=== PATIENT | male | born 1960 | race Caucasian/White ===

== ENCOUNTER 2019-12-07 13:10 | Inpatient (IN) ==
[2019-12-07] MEDS ORDERED: ACETAMINOPHEN 500 MG TABLET PO STA (13:45)
[2019-12-07 14:49] LABS: Basophils % 0.1 % (0.0-0.8); Hematocrit 38.4 VOL% (42.0-52.0); Hemoglobin 13.2 GM/DL (14.0-18.0); Immature Granulocytes % 0.8 %; Immature Granulocytes Absolute 0.12 #; Lymphocytes # 1.6 10*3/uL (1.4-4.0); Lymphocytes % 10.3 % (21.2-54.2); Mean Corpuscular HGB Conc 34.4 GM/DL (32-36); Mean Corpuscular Volume 90.8 FL (87-102); Mean Platelet Volume 10.1 FL (9.6-12.0); Monocytes % 9.2 % (1.7-12.7); Neutrophils % 79.6 % (38.7-73.9); Platelet Count 293 T/CUMM (130-400); Red Blood Count 4.23 MC/CUMM (3.8-5.5); Red Cell Distribution Width 13.2 % (9.3-17.3); White Blood Count 15.8 T/CUMM (4-12)
[2019-12-07 15:26] LABS: Albumin 3.3 G/DL (3.4-5.0); Bilirubin,Total 1.4 MG/DL (0.2-1.0); Osmolality,Calculated 262.2 MOS/KG (273-304); Total Protein 7.9 G/DL (6.4-8.3)
[2019-12-07 15:32] LABS: Apearance,Urine Slightly Hazy (Clear); Bacteria,Urine Many /HPF (Few); Bilirubin,Urine Negative (Negative); Blood, Urine Moderate mg/dL (Negative); Glucose,Urine (UA) Negative (Negative); Hyaline Casts,Urine 8 /LPF (0-3); Ketones,Urine 20 mg/dL (Negative); Mucus,Urine Occasional /LPF (Occasional); Nitrite,Urine Negative (Negative); Protein,Urine 30 MG/DL; RBC,Urine 7 /HPF (0-4); Urine Color Yellow (Yellow); Urine Specific Gravity 1.019 (1.001-1.035); WBC,Urine 79 /HPF (0-6)
[2019-12-07] MEDS ORDERED: POTASSIUM CHLORIDE 20 MEQ TABLET PO STA (15:45)
[2019-12-07] MEDS ORDERED: cefTRIAXone 1,000 MG in SODIUM CHLORIDE 0.9% 100 ML IV STA (15:46)
[2019-12-07] MEDS ORDERED: ONDANSETRON 4 MG/2 ML VIAL IV STA (15:57)
[2019-12-07] MEDS ORDERED: CALCIUM CARBONATE CHEW 500 MG TABLET PO PRN (16:58)
[2019-12-07] MEDS ORDERED: DOCUSATE SODIUM 100 MG CAPSULE PO PRN (16:58)
[2019-12-07] MEDS ORDERED: ZALEPLON 5 MG CAPSULE PO PRN (16:58)
[2019-12-07 17:45] LABS: ABG Base Excess 1.9 MMOL/L (-2.5-2.5); ABG HCO3 26.1 MMOL/L (20-26); ABG Oxygen Saturation 99.6 % (95-100); ABG TCO2 18.4 MMOL/L (23-27)
[2019-12-07 17:50] LABS: ABG PCO2 20.8 MM HG (35-48)
[2019-12-07] MEDS: ONDANSETRON 4 MG/2 ML VIAL IV PRN (20:43)
[2019-12-07] MEDS: POTASSIUM CHLORIDE INJ 30 MEQ in SODIUM CHLORIDE 0.9% 1,000 ML IV SCH (20:43)
[2019-12-07] MEDS: ENOXAPARIN 40 MG/0.4 ML SYRINGE SUBCUT SCH (20:43)
[2019-12-07] MEDS: ACETAMINOPHEN 325 MG TABLET PO PRN (22:17)
[2019-12-08] MEDS: POTASSIUM CHLORIDE INJ 30 MEQ in SODIUM CHLORIDE 0.9% 1,000 ML IV SCH ×3 (05:30→22:36)
[2019-12-08] MEDS: ONDANSETRON 4 MG/2 ML VIAL IV PRN (05:31)
[2019-12-08 07:11] LABS: Calcium 8.5 MG/DL (8.5-10.1); Osmolality,Calculated 266.8 MOS/KG (273-304)
[2019-12-08 18:25] LABS: Calcium 8.3 MG/DL (8.5-10.1); Osmolality,Calculated 265.8 MOS/KG (273-304)
[2019-12-08] MEDS: ACETAMINOPHEN 325 MG TABLET PO PRN (18:51)
[2019-12-08] MEDS: ENOXAPARIN 40 MG/0.4 ML SYRINGE SUBCUT SCH (21:09)
[2019-12-08] MEDS: cefTRIAXone 1,000 MG in SYRINGE 1 EACH IV SCH (21:09)
[2019-12-08] MEDS: POTASSIUM CHLORIDE RIDER 10 MEQ in PREMIX 1 EACH IV PRN ×2 (21:10→22:38)
[2019-12-09] MEDS: POTASSIUM CHLORIDE RIDER 10 MEQ in PREMIX 1 EACH IV PRN ×3 (01:52→10:15)
[2019-12-09 06:05] LABS: Basophils % 0.3 % (0.0-0.8); Eosinophils % 0.1 % (0.00-10.9); Hematocrit 34.1 VOL% (42.0-52.0); Hemoglobin 11.6 GM/DL (14.0-18.0); Immature Granulocytes Absolute 0.11 #; Lymphocytes # 2.3 10*3/uL (1.4-4.0); Lymphocytes % 20.9 % (21.2-54.2); Mean Platelet Volume 10.1 FL (9.6-12.0); Monocytes % 14.7 % (1.7-12.7); Platelet Count 268 T/CUMM (130-400); Red Blood Count 3.79 MC/CUMM (3.8-5.5); Red Cell Distribution Width 13.4 % (9.3-17.3); White Blood Count 11.1 T/CUMM (4-12)
[2019-12-09 06:33] LABS: Osmolality,Calculated 264.7 MOS/KG (273-304)
[2019-12-09] MEDS: AZITHROMYCIN 250 MG TABLET PO SCH (08:20)
[2019-12-09] MEDS: POTASSIUM CHLORIDE INJ 30 MEQ in SODIUM CHLORIDE 0.9% 1,000 ML IV SCH ×2 (10:14→19:20)
[2019-12-09] MEDS: SODIUM CHLORIDE 0.9% 1,000 ML IV SCH ×2 (17:49→21:12)
[2019-12-09] MEDS: carvediloL 25 MG TABLET PO SCH (21:12)
[2019-12-09] MEDS: ENOXAPARIN 40 MG/0.4 ML SYRINGE SUBCUT SCH (21:12)
[2019-12-09] MEDS: cefTRIAXone 1,000 MG in SYRINGE 1 EACH IV SCH (21:13)
[2019-12-10 05:21] LABS: Basophils % 0.3 % (0.0-0.8); Eosinophils % 1.1 % (0.00-10.9); Hematocrit 35.9 VOL% (42.0-52.0); Hemoglobin 12.2 GM/DL (14.0-18.0); Immature Granulocytes % 1.1 %; Lymphocytes % 33.1 % (21.2-54.2); Mean Corpuscular Volume 90.7 FL (87-102); Monocytes % 12.1 % (1.7-12.7); Neutrophils % 52.3 % (38.7-73.9); Platelet Count 289 T/CUMM (130-400); Red Blood Count 3.96 MC/CUMM (3.8-5.5); Red Cell Distribution Width 13.2 % (9.3-17.3); White Blood Count 8.9 T/CUMM (4-12)
[2019-12-10 05:22] LABS: Eosinophils # 0.1 10*3/uL (0.0-0.87); Lymphocytes # 2.9 10*3/uL (1.4-4.0)
[2019-12-10 05:46] LABS: Calcium 8.6 MG/DL (8.5-10.1); Osmolality,Calculated 261.8 MOS/KG (273-304)
[2019-12-10] MEDS: SPIRONOLACTONE 25 MG TABLET PO SCH (09:35)
[2019-12-10] MEDS: CHLORTHALIDONE 25 MG TABLET PO SCH (09:37)
[2019-12-10] MEDS: ASPIRIN EC 81 MG TABLET PO SCH (09:37)
[2019-12-10] MEDS: carvediloL 25 MG TABLET PO SCH ×2 (09:37→21:19)
[2019-12-10] MEDS: AZITHROMYCIN 250 MG TABLET PO SCH (09:38)
[2019-12-10] MEDS: SODIUM CHLORIDE 0.9% 1,000 ML IV SCH ×2 (14:38→22:11)
[2019-12-10] MEDS: ENOXAPARIN 40 MG/0.4 ML SYRINGE SUBCUT SCH (21:19)
[2019-12-10] MEDS: cefTRIAXone 1,000 MG in SYRINGE 1 EACH IV SCH (21:24)
[2019-12-11 05:36] LABS: Calcium 8.4 MG/DL (8.5-10.1); Osmolality,Calculated 267.4 MOS/KG (273-304)
[2019-12-11] MEDS: CHLORTHALIDONE 25 MG TABLET PO SCH (08:20)
[2019-12-11] MEDS: SPIRONOLACTONE 25 MG TABLET PO SCH (08:20)
[2019-12-11] MEDS: AZITHROMYCIN 250 MG TABLET PO SCH (08:20)
[2019-12-11] MEDS: carvediloL 25 MG TABLET PO SCH ×2 (08:20→21:46)
[2019-12-11] MEDS: ASPIRIN EC 81 MG TABLET PO SCH (08:20)
[2019-12-11] MEDS: POTASSIUM CHLORIDE RIDER 10 MEQ in PREMIX 1 EACH IV PRN ×3 (12:38→15:13)
[2019-12-11] MEDS: TAMSULOSIN 0.4 MG CAPSULE PO SCH (15:55)
[2019-12-11] MEDS: SODIUM CHLORIDE 0.9% 1,000 ML IV SCH ×2 (16:31→21:47)
[2019-12-11] MEDS ORDERED: FINASTERIDE 5 MG TABLET PO SCH (21:00)
[2019-12-11] MEDS: cefTRIAXone 1,000 MG in SYRINGE 1 EACH IV SCH (21:45)
[2019-12-11] MEDS: ENOXAPARIN 40 MG/0.4 ML SYRINGE SUBCUT SCH (21:45)
[2019-12-12] MEDS: SPIRONOLACTONE 25 MG TABLET PO SCH (08:58)
[2019-12-12] MEDS: AZITHROMYCIN 250 MG TABLET PO SCH (08:58)
[2019-12-12] MEDS: CHLORTHALIDONE 25 MG TABLET PO SCH (08:58)
[2019-12-12] MEDS: TAMSULOSIN 0.4 MG CAPSULE PO SCH (08:58)
[2019-12-12] MEDS: ASPIRIN EC 81 MG TABLET PO SCH (08:58)
[2019-12-12] MEDS: carvediloL 25 MG TABLET PO SCH (08:58)
[2019-12-12 13:26] VITALS: BP 130/80
== END 2019-12-12 14:24 | disposition home or self-care (01) | DRG 872 ==
LOC: N.ED 13:10 → SUATTDRO 16:58 → N.EDINP 16:58 → N.2E 17:51 → N.TELEN 12-11 13:02
PROVIDERS: ADMIT Internal Medicine; ATTEND Internal Medicine

== ENCOUNTER 2021-12-13 09:15 | Inpatient (IN) ==
[2021-12-13 09:50] LABS: Basophils % 0.1 % (0.0-0.8); Hematocrit 38.4 VOL% (42.0-52.0); Hemoglobin 13.4 GM/DL (14.0-18.0); Immature Granulocytes % 0.7 %; Immature Granulocytes Absolute 0.14 #; Lymphocytes # 2.7 10*3/uL (1.4-4.0); Lymphocytes % 12.7 % (21.2-54.2); Mean Corpuscular HGB Conc 34.9 GM/DL (32-36); Mean Corpuscular Volume 88.7 FL (87-102); Monocytes # 1.7 10*3/uL (0.11-0.8); Monocytes % 7.9 % (1.7-12.7); Neutrophils % 78.6 % (38.7-73.9); Platelet Count 311 T/CUMM (130-400); Red Blood Count 4.33 MC/CUMM (3.8-5.5); Red Cell Distribution Width 13.2 % (9.3-17.3)
[2021-12-13] MEDS ORDERED: SODIUM CHLORIDE 0.9% 1,000 ML IV STA (09:55)
[2021-12-13 10:09] LABS: Lymphocytes 13 % (20-55); Platelet Estimate Adequate; Total Cells Counted 100
[2021-12-13 10:15] LABS: Albumin 3.1 G/DL (3.4-5.0); Bilirubin,Total 1.8 MG/DL (0.20-1.00); Calcium 8.9 MG/DL (8.5-10.1); Osmolality,Calculated 271.5 MOS/KG (273-304); Potassium 3.4 MMOL/L (3.5-5.1); Total Protein 6.6 G/DL (6.4-8.2)
[2021-12-13] MEDS ORDERED: ONDANSETRON 4 MG/2 ML VIAL ONE (10:15)
[2021-12-13 10:19] LABS: Bacteria,Urine Many /HPF (Few); Bilirubin,Urine Negative (Negative); Blood, Urine Moderate mg/dL (Negative); Glucose,Urine (UA) 100 mg/dL (Negative); Hyaline Casts,Urine 18 /LPF (0-3); Ketones,Urine Negative (Negative); Mucus,Urine Occasional /LPF (Occasional); Nitrite,Urine Positive (Negative); Protein,Urine 100 mg/dL (Negative); RBC,Urine 12 /HPF (0-4); Urine Appearance Cloudy (Clear); Urine Color Orange (Yellow); Urine Specific Gravity 1.025 (1.001-1.035); Urine pH 5.5 (4.5-8.0)
[2021-12-13] MEDS ORDERED: ONDANSETRON 4 MG/2 ML VIAL IV STA (10:26)
[2021-12-13] MEDS ORDERED: SODIUM CHLORIDE 0.9% 2,950 ML IV ONE (10:43)
[2021-12-13] MEDS ORDERED: cefTRIAXone 1,000 MG in SODIUM CHLORIDE 0.9% 100 ML IV STA (10:43)
[2021-12-13] MEDS ORDERED: cefTRIAXone 1,000 MG VIAL ONE (10:50)
[2021-12-13] MEDS: PIPERACILLIN/TAZOBACTAM 3,375 MG in SODIUM CHLORIDE 0.9% 100 ML IV SCH ×2 (11:15→20:25)
[2021-12-13] MEDS ORDERED: ACETAMINOPHEN 325 MG TABLET PO PRN (12:34)
[2021-12-13] MEDS ORDERED: GLUCAGON 1 MG VIAL IM PRN (12:34)
[2021-12-13] MEDS ORDERED: ALBUTEROL/IPRATROPIUM 3 ML NEB RESP TX PRN (12:43)
[2021-12-13] MEDS ORDERED: DEXTROSE 10% 250 ML BAG IV PRN (12:46)
[2021-12-13] MEDS: SODIUM CHLOR 0.9% KCL 40 MEQ 40 MEQ/1,000 ML BAG IV SCH (15:03)
[2021-12-13] MEDS: ENOXAPARIN 30 MG/0.3 ML SYRINGE SUBCUT SCH (15:03)
[2021-12-13] MEDS: ONDANSETRON 4 MG/2 ML VIAL IV PRN ×2 (15:04→20:25)
[2021-12-13 18:43] LABS: Thyroid Stimulating Hormone 0.305 uIU/ml (0.358-3.74)
[2021-12-13] MEDS ORDERED: PIPERACILLIN/TAZOBACTAM 3,375 MG in SODIUM CHLORIDE 0.9% 100 ML IV SCH (19:00)
[2021-12-14] MEDS: ONDANSETRON 4 MG/2 ML VIAL IV PRN (01:58)
[2021-12-14] MEDS: PIPERACILLIN/TAZOBACTAM 3,375 MG in SODIUM CHLORIDE 0.9% 100 ML IV SCH ×3 (03:49→21:01)
[2021-12-14] MEDS: SODIUM CHLOR 0.9% KCL 40 MEQ 40 MEQ/1,000 ML BAG IV SCH ×3 (03:50→20:58)
[2021-12-14 05:03] LABS: Basophils % 0.1 % (0.0-0.8); Hematocrit 32.9 VOL% (42.0-52.0); Hemoglobin 11.1 GM/DL (14.0-18.0); Immature Granulocytes Absolute 0.18 #; Lymphocytes # 1.5 10*3/uL (1.4-4.0); Lymphocytes % 8.8 % (21.2-54.2); Mean Corpuscular HGB Conc 33.7 GM/DL (32-36); Mean Corpuscular Volume 91.9 FL (87-102); Mean Platelet Volume 10.2 FL (9.6-12.0); Monocytes # 1.9 10*3/uL (0.11-0.8); Monocytes % 11.1 % (1.7-12.7); Platelet Count 255 T/CUMM (130-400); Red Blood Count 3.58 MC/CUMM (3.8-5.5); Red Cell Distribution Width 13.2 % (9.3-17.3); White Blood Count 17.4 T/CUMM (4-12)
[2021-12-14 05:22] LABS: Calcium 7.9 MG/DL (8.5-10.1); Osmolality,Calculated 271.4 MOS/KG (273-304); Potassium 2.7 MMOL/L (3.5-5.1)
[2021-12-14] MEDS: POTASSIUM CHLORIDE 20 MEQ TABLET PO SCH ×3 (09:07→12:57)
[2021-12-14] MEDS: PANTOPRAZOLE 40 MG TABLET PO SCH (09:07)
[2021-12-14] MEDS: ASPIRIN EC 81 MG TABLET PO SCH (10:18)
[2021-12-14] MEDS ORDERED: ALBUTEROL 2.5 MG/3 ML NEB RESP TX PRN (12:24)
[2021-12-14] MEDS: BENZONATATE 100 MG CAPSULE PO PRN ×2 (12:57→18:31)
[2021-12-14] MEDS: ALBUTEROL/IPRATROPIUM 3 ML NEB RESP TX SCH ×3 (14:05→23:40)
[2021-12-14 15:27] LABS: Osmolality,Calculated 272.4 MOS/KG (273-304); Potassium 3.7 MMOL/L (3.5-5.1)
[2021-12-14] MEDS: ENOXAPARIN 30 MG/0.3 ML SYRINGE SUBCUT SCH (15:37)
[2021-12-14] MEDS: ATORVASTATIN 80 MG TABLET PO SCH (21:00)
[2021-12-15] MEDS: SODIUM CHLOR 0.9% KCL 40 MEQ 40 MEQ/1,000 ML BAG IV SCH ×3 (00:06→19:56)
[2021-12-15] MEDS: BENZONATATE 100 MG CAPSULE PO PRN ×2 (00:06→21:41)
[2021-12-15] MEDS: ALBUTEROL/IPRATROPIUM 3 ML NEB RESP TX SCH ×6 (03:40→22:55)
[2021-12-15] MEDS: PIPERACILLIN/TAZOBACTAM 3,375 MG in SODIUM CHLORIDE 0.9% 100 ML IV SCH ×3 (03:40→19:53)
[2021-12-15 05:34] LABS: Basophils % 0.2 % (0.0-0.8); Eosinophils # 0.1 10*3/uL (0.0-0.87); Eosinophils % 0.4 % (0.00-10.9); Hematocrit 32.2 VOL% (42.0-52.0); Hemoglobin 10.8 GM/DL (14.0-18.0); Immature Granulocytes % 1.6 %; Lymphocytes # 2.2 10*3/uL (1.4-4.0); Lymphocytes % 17.1 % (21.2-54.2); Mean Corpuscular HGB Conc 33.5 GM/DL (32-36); Mean Corpuscular Volume 93.1 FL (87-102); Mean Platelet Volume 10.6 FL (9.6-12.0); Monocytes # 1.3 10*3/uL (0.11-0.8); Monocytes % 10.3 % (1.7-12.7); Neutrophils % 70.4 % (38.7-73.9); Platelet Count 283 T/CUMM (130-400); Red Blood Count 3.46 MC/CUMM (3.8-5.5); Red Cell Distribution Width 13.6 % (9.3-17.3); White Blood Count 12.6 T/CUMM (4-12)
[2021-12-15 06:11] LABS: Calcium 8.6 MG/DL (8.5-10.1); Osmolality,Calculated 268.5 MOS/KG (273-304); Potassium 3.8 MMOL/L (3.5-5.1)
[2021-12-15] MEDS: carvediloL 25 MG TABLET PO SCH ×2 (11:21→17:33)
[2021-12-15] MEDS: PANTOPRAZOLE 40 MG TABLET PO SCH (11:22)
[2021-12-15] MEDS: ASPIRIN EC 81 MG TABLET PO SCH (12:36)
[2021-12-15] MEDS: ENOXAPARIN 30 MG/0.3 ML SYRINGE SUBCUT SCH (14:26)
[2021-12-15] MEDS: ATORVASTATIN 80 MG TABLET PO SCH (21:41)
[2021-12-16] MEDS: PIPERACILLIN/TAZOBACTAM 3,375 MG in SODIUM CHLORIDE 0.9% 100 ML IV SCH ×2 (03:12→10:00)
[2021-12-16] MEDS: ALBUTEROL/IPRATROPIUM 3 ML NEB RESP TX SCH ×3 (03:50→10:34)
[2021-12-16] MEDS: SODIUM CHLOR 0.9% KCL 40 MEQ 40 MEQ/1,000 ML BAG IV SCH (05:51)
[2021-12-16 06:48] LABS: Basophils # 0.1 10*3/uL (0.0-0.2); Basophils % 0.7 % (0.0-0.8); Eosinophils # 0.2 10*3/uL (0.0-0.87); Eosinophils % 1.8 % (0.00-10.9); Hematocrit 34.4 VOL% (42.0-52.0); Hemoglobin 11.4 GM/DL (14.0-18.0); Immature Granulocytes % 4.1 %; Immature Granulocytes Absolute 0.39 #; Lymphocytes # 2.2 10*3/uL (1.4-4.0); Mean Corpuscular HGB Conc 33.1 GM/DL (32-36); Mean Platelet Volume 10.3 FL (9.6-12.0); Neutrophils % 60.4 % (38.7-73.9); Platelet Count 326 T/CUMM (130-400); Red Cell Distribution Width 13.5 % (9.3-17.3); White Blood Count 9.6 T/CUMM (4-12)
[2021-12-16 07:05] LABS: Calcium 8.1 MG/DL (8.5-10.1); Osmolality,Calculated 267.4 MOS/KG (273-304); Potassium 3.9 MMOL/L (3.5-5.1)
[2021-12-16 08:08] VITALS: BP 135/77
[2021-12-16] MEDS: ASPIRIN EC 81 MG TABLET PO SCH (09:47)
[2021-12-16] MEDS: carvediloL 25 MG TABLET PO SCH (09:47)
[2021-12-16] MEDS: PANTOPRAZOLE 40 MG TABLET PO SCH (09:48)
== END 2021-12-16 13:18 | disposition home or self-care (01) | DRG 698 ==
LOC: N.ED 09:15 → N.EDINP 12:09 → SUATTDRO 12:09 → N.3E 16:50
PROVIDERS: ADMIT Internal Medicine; ATTEND Internal Medicine